=== PATIENT | male | born 1990 | race Caucasian/White ===

== ENCOUNTER 2020-11-11 21:25 | Emergency (ER) | payer MEDICAID ==
[~2020-11-11] VITALS: Ht 172.7 cm; Wt 85.0 kg
[2020-11-12 03:00] VITALS: BP 135/91
== END 2020-11-12 03:00 | disposition home or self-care (01) ==
LOC: ER 21:25
DX: R06.02 Shortness of breath (principal); M54.2 Cervicalgia; R03.0 Elevated blood-pressure reading, without diagnosis of hypertension; Z86.16 Personal history of COVID-19
CPT/HCPCS: 71045; 93005; 99283